=== PATIENT | female | born 1980 | race Caucasian/White ===

== ENCOUNTER 2018-12-18 11:18 | Inpatient (IN) | payer OTHER ==
--- NOTE | 2018-12-18 11:38 | PDOC ---
History of Present Illness - General Chief Complaint: Headache Stated Complaint: HEADCHE,FEVER,NAUSEA Time Seen by Provider: 12/18/18 11:37 History Source: Patient Exam Limitations: No Limitations - History of Present Illness Initial Comments: 38 yo F w a hx of asthma presents to the ER from urgent care because she has had a fever and headache since this past Monday. She endorses nausea as well as multiple episodes of NBNB vomitus. She does not usually get headaches, has not history of migraines and states this headache is very abnormal for her. She has been having fevers, chills, and myalgias since Monday. She states her whole body hurts, she feels warm but is constantly cold. She states that she didn't come to a hospital because ibuprofen was helping her deal with the pain but this morning she began feeling numbness and tingling around her left lip and cheek so she came to be evaluated. She has been taking ibuprofen every day for her headache and fever which she believes has been helping. At urgent care her fever was 102, here in the ER it is 100.5. She denies any sick contacts, neck pain, blurry vision, difficulty ranging her head or neck. LMP: 3 weeks prior. PCP: None PSH: , tibial surgery Social Hx: Drinks recreationally. Denies smoking or illicit drug usage. Allergies: NKA, NKDA - [facility] Phone number: [phone] Past History - Past Medical History Allergies/Adverse Reactions: Allergies Allergy/AdvReac Type Severity Reaction Status Date / Time No Known Allergies Allergy Verified 12/18/18 11:19 Home Medications: Ambulatory Orders NK [No Known Home Medication] 12/18/18 COPD: No - Suicide/Smoking/Psychosocial Hx Smoking History: Never smoked Have you smoked in the past 12 months: No Information on smoking cessation initiated: No Hx Alcohol Use: No Drug/Substance Use Hx: No Review of Systems - Review of Systems Able to Perform ROS?: Yes Comments:: CONSTITUTIONAL: + fever, + chills, + fatigue EYES: No visual changes ENT: No ear pain, no sore throat CARDIOVASCULAR: No chest pain, no palpitations RESPIRATORY: No cough, no SOB GI: No abdominal pain, + nausea, + vomiting, no constipation, no diarrhea GENITOURINARY: No dysuria, no frequency, no hematuria MUSKULOSKELETAL: No backpain, no joint pain, + myalgias SKIN: No rash NEURO: + headache *Physical Exam - Vital Signs Last Vital Signs Temp Pulse Resp BP Pulse Ox 100.5 F H 98 H 20 109/68 100 12/18/18 11:19 12/18/18 11:19 12/18/18 11:19 12/18/18 11:19 12/18/18 11:19 - Physical Exam Comments: CONSTITUTIONAL: Patient looks unwell. Well-nourished but pale; Moderate distress HEAD: Normocephalic; atraumatic EYES: PERRL; EOM intact ENMT: External appears normal; normal oropharynx NECK: Supple; non-tender; no cervical lymphadenopathy CARD: Tachycardic rate, regular rhythm. Normal S1, S2; no murmurs, rubs, or gallops RESP: CTAB. No wheezes, rhonchi, or rales ABD: Soft, non-distended; non-tender; no palpable organomegaly, no palpable hernias EXT: Normal ROM in all four extremities; non-tender to palpation; distal pulses intact SKIN: Skin is Hot. Dry, no rash NEURO: Alert, awake, appropriate. There is left upper lip and cheek numbness. Otherwise, cranial nerves 2-12 intact. No other deficits to light touch in face , upper extremities and lower extremities. No motor deficits in the in face, upper extremities and lower extremities. No pronator drift. Normoreflexic in the upper and lower extremities. Normal speech. Toes are down-going bilaterally. Gait is normal without ataxia. No dysmetria - normal finger to nose and heel to hanson. No dysdiadochokinesis. No abnormal nystagmus. Rhomberg is -. Procedures - Lumbar Puncture Indication: Fever, Headache CT Scan: Yes Betadine Prep: Yes Position: Right lateral decubitus Site: L4-L51 Local Anesthesia: 1% Xylocaine w/ epi Volume(ml): 6 Lumbar Puncture Kit: Adult Opening Pressure(mmHg): 20 Traumatic Tap: No Tubes Obtained: 4 Clear Fluid: Yes Complications: No ED Treatment Course - LABORATORY CBC & Chemistry Diagram: 12/18/18 12:21 12/18/18 12:21 - RADIOLOGY Radiograph Interpretation: CT: Rule out stroke. Rule out infection CT scan of the brain without intravenous contrast. The ventricles and basal cisterns appear unremarkable. No mass lesion , gross acute infarct or intracranial hemorrhage are identified. There is no shift of the midline structures. Minimal mucosal thickening in the sphenoid sinus. Otherwise, the visualized paranasal sinuses and mastoid air cells are well-aerated. The calvarium is intact. Impression: No evidence of a focal intracranial lesion or hemorrhage seen. Correlate clinically to determine further evaluation and follow-up Medical Decision Making - Medical Decision Making 38 yo F w a hx of asthma presents to the ER from urgent care because she has had a fever and headache since this past Monday. She endorses nausea as well as multiple episodes of NBNB vomitus. She does not usually get headaches, has not history of migraines and states this headache is very abnormal for her. She has been having fevers, chills, and myalgias since Monday. She states her whole body hurts, she feels warm but is constantly cold. She states that she didn't come to a hospital because ibuprofen was helping her deal with the pain but this morning she began feeling numbness and tingling around her left lip and cheek so she came to be evaluated. VS: febrile and borderline tachycardic DDx IBNLT: meningitis/encephalitis viral vs bacterial, other infection - PNA, URI, UTI, gastroenteritis, complex migraine, CVA/TIA, trigeminal neuralgia, lyme disease. Plan: Labs, IV hydration, EKG, HCG, zofran, tylenol, CXR, cultures, Head CT, probable LP and treat accordingly then re-assess. Labs show leukopenia Head CT - unremarkable LP fluid clear - I brought the LP to [facility] lab for certainty of delivery. Will await results. - LP not suggestive of encephalitis/meningitis Will treat the patient empirically with acyclovir to cover for HSV as well as Ceftriaxone to cover for lyme. ID and neuro consulted for the patient. Spoke with Dr. Reddy - Vancomycin added for empiric treatment of meningitis until bacterial is ruled out. Patient microblogged and accepted for admission to Dr. Pickens's Service. *DC/Admit/Observation/Transfer Diagnosis at time of Disposition: Headache, Fever - Discharge Dispostion Condition at time of disposition: Stable Decision to Admit order: Yes - Referrals - Patient Instructions - Post Discharge Activity
--- NOTE | 2018-12-18 11:39 | PDOC ---
Attending Attestation - Resident Resident Name: Carlin Norman - ED Attending Attestation I have performed the following: I have examined & evaluated the patient, The case was reviewed & discussed with the resident, I agree w/resident's findings & plan - HPI HPI: 12/18/18 12:42 38 yo F w a hx of asthma presents to the ER from urgent care because she has had a fever and headache x3 days since this past Monday. Associated with +nausea , NBNB emesis, myalgias, perioral numbness/tingling and cheeks. also endorses left gum pain but no dental procedures. she does admit to hikes in the [place], last 1 week ago and goes weekly. no known bites, ticks, or environmental triggers/injuries/exposures. No history of migraines/headaches. She has been taking ibuprofen every day for her headache and fever which she believes has been helping to a degree. At urgent care her fever was 102, here in the ER it is 100.5. She denies any sick contacts, neck pain, blurry vision, difficulty ranging her head or neck. No URI sx, no urinary sx, rash or abdominal pain/bowel and bladder symptoms. no travel 12/18/18 17:38 12/18/18 17:39 12/19/18 14:10 - Physicial Exam PE: 12/18/18 12:42 Agree with the resident's HPI and PE as documented in the electronic medical record. NAD, malaised appearing, EOMI, PERRL, MMM, nl conjunctiva, anicteric; neck supple. lungs clear, +tachycardic, abdomen soft nontender. Back nontender. HOLM x4, no focal neuro deficits. No peripheral edema. normal color for ethnicity, WWP. no rash 12/18/18 13:34 - Medical Decision Making 12/18/18 12:42 See HPI for details. Prior notes reviewed, including admissions, discharges and consultations. Vital signs reviewed, fever noted, normotensive normal mental status DDX. viral syndrome, dehydration, meningitis, encephalitis, bacteremia. 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 no clear source, but with GOLDMAN/fever, myalgias and no prior h/o headache, needs to be evaluated for meningitis/encephalitis with LP laboratory results and imaging reviewed, basic labs and lytes wnl, notable for mild leukopenia, which can go with viral etiology LFTs neg, lactic normal, reassuring. UA with ketones, no s/s infection. EKG normal sinus rhythm at 99 bpm, no interval abnormalities, narrow QRS, ST and T wave segments and morphology normal. Nonspecific T wave abnormalities ED course -interventions: IVF, antipyretics. zofran/reglan/benadryl - goldman improving, VS improving, no longer tachy - CT head negative for pathology - consent obtained for LP, risks and indications discussed, pt verbalized understanding and signed for procedure. procedure performed by resident under my direct supervision. 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 IVF hydration continued, tolerating PO intake. ID cs Dr Reddy, Neuro cs Dr Shi mental retardation nurse. admit observation for headache, fever and r/o meningitis, more likely viral picture. admit to Dr Pickens service 12/18/18 17:39 12/18/18 17:45 12/18/18 18:01 Heart Score/ECG Review #1 ECG reviewed & interpreted by me at: 12:15 General ECG Interpretation: Sinus Rhythm, Normal Rate, Normal Intervals Compared to previous ECG there are: Previous ECG unavail 12/18/18 12:44 EKG normal sinus rhythm at 99 bpm, no interval abnormalities, narrow QRS, ST and T wave segments and morphology normal. Nonspecific T wave abnormalities
[2018-12-18] MEDS ORDERED: SODIUM CHLORIDE 1,769 ML IV ONE (11:53)
[2018-12-18] MEDS ORDERED: ACETAMINOPHEN 1000 MG/100 ML VIAL (NON FORMULARY) IVPB ONE (12:00)
[2018-12-18] MEDS ORDERED: ONDANSETRON 4 MG/2 ML VIAL IVPUSH ONE ×2 (12:03→18:00)
[2018-12-18] MEDS ORDERED: ACETAMINOPHEN INJECTION 100 ML IVPB ONE (12:09)
[2018-12-18] MEDS ORDERED: ONDANSETRON 4 MG/2 ML VIAL ONE ×2 (12:09→18:08)
[2018-12-18 12:30] LABS: BASO % 0.2 % (0-2.0); EOS % 0.1 % (0-4.5); HEMATOCRIT 42.4 % (32.4-45.2); HEMOGLOBIN 14.1 GM/dl (10.7-15.3); LYMPH % 9.6 % (8-40); MCH 30.1 pg (25.7-33.7); MCHC 33.2 g/dl (32.0-36.0); MEAN CELL VOLUME 90.6 fl (80-96); MEAN PLT VOLUME 7.7 fl (7.5-11.1); MONO % 7.7 % (3.8-10.2); NEUT % 82.4 % (42.8-82.8); PLATELET COUNT 187 K/MM3 (134-434); RBC 4.68 M/mm3 (3.60-5.2); RDW 11.6 % (11.6-15.6); WHITE BLOOD COUNT 3.8 K/mm3 (4.0-10.8)
[2018-12-18 12:37] LABS: ACTIVATED PTT 23.1 SECONDS (25.2-36.5)
[2018-12-18 12:38] LABS: ALBUMIN 3.7 g/dl (3.4-5.0); CALCIUM 9.1 mg/dl (8.5-10); POTASSIUM 3.8 mmol/L (3.5-5.1)
[2018-12-18 12:44] LABS: INR 1.14 (0.82-1.09); PROTHROMBIN TIME (PATIENT) 12.7 SEC (10.2-13.0)
[2018-12-18] MEDS ORDERED: METOCLOPRAMIDE HCL INJECTION 10 MG/2 ML VIAL IVPUSH ONE (13:04)
[2018-12-18] MEDS ORDERED: METOCLOPRAMIDE HCL INJECTION 10 MG/2 ML VIAL ONE (13:37)
[2018-12-18] MEDS ORDERED: LIDOCAINE HCL 1%, 10 MG/ML (20ML VIAL) ONE (14:27)
--- NOTE | 2018-12-18 15:25 | EKG ---
Test Reason : Blood Pressure : / mmHG Vent. Rate : 099 BPM Atrial Rate : 099 BPM P-R Int : 132 ms QRS Dur : 082 ms QT Int : 326 ms P-R-T Axes : 066 071 026 degrees QTc Int : 418 ms NORMAL SINUS RHYTHM NORMAL ECG NO PREVIOUS ECGS AVAILABLE Confirmed by MD Garrett, Salo ([id number]) on 12/18/2018 3:25:12 PM Referred By: GRAEME ROJAS Confirmed By:Salo Tucker MD
[2018-12-18] MEDS ORDERED: CEFTRIAXONE 2,000 MG in DEXTROSE 5%-WATER - 50 ML IVPB ONE (16:29)
[2018-12-18] MEDS ORDERED: ACYCLOVIR INJECTION 600 MG in DEXTROSE 5%-WATER - 100 ML IVPB ONE (16:29)
[2018-12-18] MEDS ORDERED: KETOROLAC TROMETHAMINE 30 MG/1 ML VIAL IVPUSH ONE (17:04)
[2018-12-18] MEDS ORDERED: KETOROLAC TROMETHAMINE 15 MG/ML VIAL ONE (17:11)
[2018-12-18] MEDS ORDERED: D5-1/2NS+10 MEQ KCL - 10 MEQ/1,000 ML INFUS.BAG IV SCH (17:15)
--- NOTE | 2018-12-18 17:21 | HP ---
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, H/o mild intermittent asthma to day referred from an urgent care Ctr for evaluation of fever with head ache, patient says since Monday she has been feeling unwell with body pain head ache, with nausea with non blood non bilious vomiting, head ache was bi-frontal no associated neck stiffness, photophobia, self medicated with Motrin that helped her partially , this am she began feeling numbness and tingling around her left lip and cheek like anaesthesia after dental procedures visited urgent care there T max noted 102 and patient was referred to Ed for further evaluation, Patient denies any sick contacts, neck pain, blurry vision , dysuria, diarrhea no recent travelling or exposure to animal last wk patient went for hiking trip, in the ED CBC< BMP are normal T max 100.5 hemodynamically stable, suspecting meningitis as patient has fever head ache and some neurological symptoms, LP was performed that was show clear fluid with opening pressure < 20, 3 WBC protein 22 normal Glucose 55 , received IV Ceftriaxone 2 gm and acyclovir ID and neurology was consulted History Source: Patient - Past Medical History Pulmonary: Yes: Asthma - Past Surgical History Past Surgical History: Yes: - Smoking History Smoking history: Never smoked Have you smoked in the past 12 months: No - Alcohol/Substance Use Hx Alcohol Use: No - Social History Usual Living Arrangement: Yes: With Spouse History of Recent Travel: No Home Medications - Allergies Allergies/Adverse Reactions: Allergies Allergy/AdvReac Type Severity Reaction Status Date / Time No Known Allergies Allergy Verified 12/18/18 11:19 - Home Medications Home Medications: Ambulatory Orders NK [No Known Home Medication] 12/18/18 Family Disease History - Family Disease History Family History: Unremarkable Review of Systems - Review of Systems Constitutional: reports: Chills, Fever, Malaise Eyes: denies: Blind Spots, Blurred Vision, Double Vision, Photophobia, Recent Change in Vision HENT: reports: Ear Pain, Nasal Congestion. denies: Difficult Swallowing, Ear Discharge, Mouth Swelling, Throat Pain Neck: denies: Decreased ROM, Lumps, Pain on Movement, Stiffness Cardiovascular: denies: Chest Pain, Edema, Palpitations, Shortness of Breath Respiratory: denies: Cough, Exercise Intolerance, Hemoptysis Gastrointestinal: reports: Nausea, Vomiting. denies: Abdominal Pain, Bloating, Constipation Genitourinary: denies: Burning Musculoskeletal: denies: Back Pain, Crepitus Neurological: reports: Numbness (Left angle of mouth). denies: Change in LOC, Change in Speech, Confusion, Dizziness, Headache, Incoordination Endocrine: denies: Excessive Sweating, Flushing, Increased Hunger Pain Intensity: 4 Physical Examination Vital Signs: Vital Signs Temperature 100.1 F H 12/18/18 16:41 Pulse Rate 79 12/18/18 16:41 Respiratory Rate 20 12/18/18 16:41 Blood Pressure 109/66 12/18/18 16:41 O2 Sat by Pulse Oximetry (%) 100 12/18/18 16:41 Young F fees improved less nause and vomiting , still c/o mild head ache HEENT: mm moist, no ear discharge mild tenderness over sinuses NECK; supple, no JVD No bruit CHEST: CTA B/L CVS; S1S2 R no m/g/r ABD: No distention, non tender Bs + EXT: no edema feet, no calf tenderness 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 non focal except subjective newness at Left angle of mouth no facial droop Cranial N 2-12 are normal Normal Motor and sensory exam DTR; symmetrical Planter B/L flexors Labs: CBC, BMP 12/18/18 12:21 12/18/18 12:21 Imaging - Results Cat Scan: Report Reviewed (Normal) EKG: Report Reviewed (99 NSR) Problem List - Problems (1) Fever Assessment/Plan: Patient present with head ache and fever with nausea and vomiting, no neck stiffness, skin rash or phoptophobia, TWBc normal prelim CSF exam dhows WBC 3 Protein 22, Glucose 50, Gram stain -ve, normal pressure , less likely meningitis, no change in MS or seizures considering recent hiking trip is covered for Lyme titers are pending will observe closely neurocheck, tylenol for fever and head ache, start clear liquid and advance as tolerates, will F/U Neurology and ID recommendations. Currently on droplet precautions pending ID recommendations. Code(s): R50.9 - FEVER, UNSPECIFIED (2) Nausea & vomiting Assessment/Plan: clear, no diarrhea abd exam unremarkable LFTs are normal. liquid advance as tolerates, D5 1/2 NS with K IV Zofran PRN and PPI Code(s): R11.2 - NAUSEA WITH VOMITING, UNSPECIFIED (3) Starvation ketoacidosis Assessment/Plan: low bicarb , acetone in the urine poor PO intake will f/U BMP after IV hydration and D5 infusion. Code(s): E87.2 - ACIDOSIS
[2018-12-18] MEDS ORDERED: SODIUM CHLORIDE 0.9% 500 ML INFUS.BAG IV ONE (17:41)
[2018-12-18] MEDS ORDERED: VANCOMYCIN 1,000 MG in DEXTROSE 5%-WATER - 250 ML IVPB ONE (17:44)
[2018-12-18 17:55] LABS: BF GLUCOSE (CSF ONLY) 50 mg/dL (40-70)
[2018-12-18 17:56] LABS: EPITHELIAL CELLS FEW /hpf
[2018-12-18] MEDS ORDERED: morphine CARPU-JECT 4 MG/1 ML DISP.SYRIN IVPUSH ONE (18:00)
[2018-12-18] MEDS ORDERED: morphine SULFATE 4 MG/ML VIAL ONE (18:07)
[2018-12-18 18:14] LABS: CSF APPEARANCE CLEAR; CSF COLOR COLORLESS; CSF WBC 3
[2018-12-18 19:03] VITALS: BMI 51.5
[2018-12-18] MEDS ORDERED: VANCOMYCIN 1 GRAM (PRE-DOCKED) 1,000 MG/250 ML BAG IVPB ONE (19:30)
[2018-12-18] MEDS: FAMOTIDINE 20 MG TABLET PO SCH (22:19)
[2018-12-18] MEDS: ONDANSETRON 4 MG/2 ML VIAL IVPUSH PRN (22:21)
[2018-12-18] MEDS: KETOROLAC TROMETHAMINE 15 MG/ML VIAL IVPUSH PRN (22:21)
[2018-12-19] MEDS: ONDANSETRON 4 MG/2 ML VIAL IVPUSH PRN ×3 (03:40→23:47)
--- NOTE | 2018-12-19 07:15 | CON.NEURO ---
Consult - Past Medical History Pulmonary: Yes: Asthma ...LMP: 12/02/18 ...: No - Past Surgical History Past Surgical History: Yes: - Alcohol/Substance Use Hx Alcohol Use: No - Smoking History Smoking history: Never smoked Have you smoked in the past 12 months: No - Social History History of Recent Travel: No Home Medications - Allergies Allergies/Adverse Reactions: Allergies Allergy/AdvReac Type Severity Reaction Status Date / Time No Known Allergies Allergy Verified 12/18/18 11:19 - Home Medications Home Medications: Ambulatory Orders NK [No Known Home Medication] 12/18/18 Physical Exam-Neuro Vital Signs: Vital Signs Temperature 99.6 F 12/19/18 06:58 Pulse Rate 99 H 12/19/18 05:58 Respiratory Rate 18 12/19/18 05:58 Blood Pressure 105/48 L 12/19/18 05:58 O2 Sat by Pulse Oximetry (%) 98 12/19/18 05:58 Labs: CBC, BMP 12/18/18 12:21 12/18/18 12:21 INR, PTT INR 1.14 (0.82-1.09) 12/18/18 12:21 Assessment/Plan cc Fever , headhace and face numbness HPI 38 year old female history of headahce for three days, followed by fever( upto 103 yesterday) and left face numbness. THere is small area of redness on left check was also seen. Her symptoms started with body ache, headache and nause aadn vomiting. Patient also have numbness around left lip . She also have left gum pain, patient denies any dental procedure. There is no other focal neurological syptoms. Her ct head i snormal, and she has spinal tap done. Her csf protein is 22 and wbc is 3. Patient has spiked fever last night. headhace is slightly better. PMH as above and asthma NKDA SH,ROS,FH reviewed in chart NK [No Known Home Medication] 12/18/18 NEUROLOGICAL EXAMINATION Alert oriented x 3, speech is normal, no neck stiffness eomi, pupils reactive and there is subjective slight dysthesia on left angle of mouth motor 5/5 all ext sensation is noraml reflex are normal ct head is unremarkable csf protien is 22 and wbc 3 Assessment/Plan three days severe headache and fever, ct scan is benign and csf is normal. Clinically there is no evidence of meningitis or encephalitis, though clinically may have early viral meningitis . Left face numbness is concering, I would do mri of brain with contrast Plan: ID consult - mri of brain with contrast Thanking you so much Albaro Mcnamara MD
[2018-12-19 08:24] LABS: ALBUMIN 2.7 g/dl (3.4-5.0); BILIRUBIN,TOTAL 1.1 mg/dl (0.2-1); CALCIUM 7.8 mg/dl (8.5-10); POTASSIUM 3.6 mmol/L (3.5-5.1); TOT PROT 5.4 g/dl (6.4-8.2)
[2018-12-19] MEDS: FAMOTIDINE 20 MG TABLET PO SCH ×2 (09:55→21:32)
[2018-12-19] MEDS ORDERED: POTASSIUM CHLORIDE ORAL LIQUID 20 MEQ/15 ML PO ONE (10:00)
[2018-12-19] MEDS ORDERED: CEFTRIAXONE 2 GM/100 ML BAG IVPB ONE (10:00)
[2018-12-19] MEDS ORDERED: CEFTRIAXONE 2 GM-D5W BAG 2 GM/50 ML BAG IVPB ONE (10:00)
[2018-12-19 10:14] LABS: HEMATOCRIT 33.5 % (32.4-45.2); HEMOGLOBIN 11.7 GM/dl (10.7-15.3); MCH 30.9 pg (25.7-33.7); MCHC 34.9 g/dl (32.0-36.0); MEAN CELL VOLUME 88.6 fl (80-96); MEAN PLT VOLUME 8.3 fl (7.5-11.1); PLATELET COUNT 120 K/MM3 (134-434); RBC 3.78 M/mm3 (3.60-5.2); RDW 11.3 % (11.6-15.6); WHITE BLOOD COUNT 3.7 K/mm3 (4.0-10.8)
--- NOTE | 2018-12-19 10:29 | CON.ID ---
Consult - Past Medical History Pulmonary: Yes: Asthma ...LMP: 12/02/18 ...: No - Past Surgical History Past Surgical History: Yes: - Alcohol/Substance Use Hx Alcohol Use: No - Smoking History Smoking history: Never smoked Have you smoked in the past 12 months: No - Social History History of Recent Travel: No Home Medications - Allergies Allergies/Adverse Reactions: Allergies Allergy/AdvReac Type Severity Reaction Status Date / Time No Known Allergies Allergy Verified 12/18/18 11:19 - Home Medications Home Medications: Ambulatory Orders NK [No Known Home Medication] 12/18/18 Physical Exam Vital Signs: Vital Signs Temperature 99.6 F 12/19/18 06:58 Pulse Rate 99 H 12/19/18 05:58 Respiratory Rate 18 12/19/18 05:58 Blood Pressure 105/48 L 12/19/18 05:58 O2 Sat by Pulse Oximetry (%) 98 12/19/18 05:58 Labs: CBC, BMP 12/19/18 07:15 12/19/18 07:13
[2018-12-19] MEDS ORDERED: VANCOMYCIN 1 GM in D5W (PRE-DOCKED) 1,000 MG/250 ML IVPB ONE (10:30)
[2018-12-19] MEDS: CLINDAMYCIN 300 MG PREMIX IVPB 300 MG/50 ML BAG IVPB SCH ×2 (11:31→17:53)
[2018-12-19 11:37] LABS: PLATELET ESTIMATE ADEQUATE
--- NOTE | 2018-12-19 14:20 | PN ---
Progress Note, Physician Chief Complaint: pt reports frontal headache, swelling of eyelids and continued anesthesia to left lower mandible. Temp 99.6 this AM. - Current Medication List Current Medications: Active Medications Famotidine (Pepcid -) 20 mg PO BID RAQUEL Last Admin: 12/19/18 09:55 Dose: 20 mg Potassium Chloride/Dextrose/Sod Cl (D5-1/2ns+10 Meq Kcl -) 10 meq in 1,000 mls @ 100 mls/hr IV ASDIR RAQUEL Last Admin: 12/19/18 01:07 Dose: 100 mls/hr Clindamycin Phosphate (Cleocin 300 Mg Premix Ivpb) 300 mg in 50 mls @ 100 mls/ hr IVPB Q8H-IV RAQUEL; Protocol Last Admin: 12/19/18 11:31 Dose: 100 mls/hr Ceftriaxone Sodium (Ceftriaxone 2 Gm-D5w Bag) 2 gm in 50 mls @ 100 mls/hr IVPB DAILY [facility] Ketorolac Tromethamine (Toradol Injection -) 10 mg IVPUSH Q6H PRN PRN Reason: PAIN LEVEL 6-10 Stop: 12/23/18 21:53 Last Admin: 12/18/18 22:21 Dose: 10 mg Ondansetron HCl (Zofran Injection) 4 mg IVPUSH Q6H PRN PRN Reason: NAUSEA Last Admin: 12/19/18 03:40 Dose: 4 mg - Objective Vital Signs: Vital Signs Temperature 98.2 F 12/19/18 14:00 Pulse Rate 70 12/19/18 14:00 Respiratory Rate 17 12/19/18 14:00 Blood Pressure 109/68 12/19/18 14:00 O2 Sat by Pulse Oximetry (%) 100 12/19/18 14:00 Constitutional: Yes: Well Nourished, Pallor Eyes: Yes: Conjunctiva Clear, EOM Intact, PERRL HENT: Yes: Atraumatic, Normocephalic Neck: Yes: Supple, Trachea Midline Cardiovascular: Yes: Regular Rate and Rhythm Respiratory: Yes: Regular, CTA Bilaterally Gastrointestinal: Yes: Normal Bowel Sounds, Soft ...Rectal Exam: Yes: Deferred Extremities: Yes: WNL Edema: No Peripheral Pulses WNL: Yes Peripheral Pulses: Left Radial: 2+, Right Radial: 2+, Left Doralis Pedis: 2+, Right Dorsalis Pedis: 2+ Integumentary: Yes: WNL Neurological: Yes: Alert, Oriented ...Motor Strength: WNL Psychiatric: Yes: Alert, Oriented Labs: CBC, BMP 12/19/18 07:15 12/19/18 07:13 INR, PTT INR 1.14 (0.82-1.09) 12/18/18 12:21 Negative blood parasite testing 12/19/18 - ....Imaging Cat Scan: Report Reviewed (CT neck and mandible 12/19/2018 IMPRESSION: No discrete abscess is seen. There is no definite osseous pathology. Dental consultation is suggested, nonemergent versus emergent as clinically indicated given the provided clinical history. Reported By: Trent Hawkins MD 12/19/18 1319) MRI: Report Reviewed (MRI Brain 12/19/2018 Impression: Impression. No evidence of edema, acute or subacute ischemia changes, hemorrhage, or demyelinating process. Normal CSF spaces. Following intravenous infusion with gadolinium, no blood brain barrier defect, or abnormal focus of enhancement is seen. No evidence of leptomeningeal enhancement. Reported By: Usman Sanderson MD 12/19 6846) Problem List - Problems (1) FUO (fever of unknown origin) Assessment/Plan: blood cx, viral and urine cultures pending CSF fluid: no growth to date ID following, recs appreciated - d/c vanco, continue ceftriaxone and start clindamycin per ID CT mandible and soft tissues of neck done: no sigificant findings MRI brain completed: unremarkable study f/u CXR ordered for Right base increased pulm markings Code(s): R50.9 - FEVER, UNSPECIFIED (2) Headache Assessment/Plan: Tylenol PRN moderate pain Toradol PRN severe pain neuro check cont neuro following Code(s): R51 - HEADACHE (3) Prophylactic measure Assessment/Plan: OOB to chair Ambulate as tolerated pepcid BID Code(s): Z29.9 - ENCOUNTER FOR PROPHYLACTIC MEASURES, UNSPECIFIED (4) Nausea & vomiting Assessment/Plan: PRN zofran po intake as tolerated Code(s): R11.2 - NAUSEA WITH VOMITING, UNSPECIFIED Impression/Plan Impression/Plan: Code status: full Visit type - Emergency Visit Emergency Visit: Yes ED Registration Date: 12/18/18 Care time: The patient presented to the Emergency Department on the above date and was hospitalized for further evaluation of their emergent condition. - New Patient This patient is new to me today: Yes Date on this admission: 12/19/18 - Critical Care Critical Care patient: No - Discharge Referral Referred to [facility] Med P.C[facility] No
[2018-12-19] MEDS: KETOROLAC TROMETHAMINE 15 MG/ML VIAL IVPUSH PRN (16:48)
[2018-12-19] MEDS: ACETAMINOPHEN 500 MG TABLET (FP) PO PRN (16:50)
[2018-12-20] MEDS: CLINDAMYCIN 300 MG PREMIX IVPB 300 MG/50 ML BAG IVPB SCH ×3 (01:45→18:20)
[2018-12-20] MEDS: ONDANSETRON 4 MG/2 ML VIAL IVPUSH PRN (04:57)
[2018-12-20] MEDS ORDERED: PROCHLORPERAZINE INJECTION 10 MG/2 ML VIAL IVPB PRN (07:38)
[2018-12-20] MEDS: METOCLOPRAMIDE HCL INJECTION 10 MG/2 ML VIAL IVPUSH PRN (07:49)
--- NOTE | 2018-12-20 07:50 | PN ---
Progress Note, Physician Chief Complaint: fever, malaise, facial numbness History of Present Illness: 38 yo F with no PMH referred to ED from an urgent care for evaluation of fever with head ache, patient says since Monday she has been feeling unwell with body pain head ache, with nausea with non blood non bilious vomiting, head ache was bi-frontal no associated neck stiffness, photophobia. Stated she began feeling numbness and tingling around her left lip and cheek like anaesthesia after dental procedures visited urgent care there T max noted 102 and patient was referred to Ed for further evaluation, Patient denies any sick contacts, neck pain, blurry vision, dysuria, diarrhea no recent travelling or exposure to animal last wk patient went for hiking trip, in the ED CBC< BMP are normal T max 100.5 hemodynamically stable, suspecting meningitis as patient has fever head ache and some neurological symptoms, LP was performed that was show clear fluid with opening pressure < 20, 3 WBC protein 22 normal Glucose 55 , received IV Ceftriaxone 2 gm and acyclovir ID and neurology was consulted - Current Medication List Current Medications: Active Medications Acetaminophen (Tylenol -) 1,000 mg PO Q6H PRN PRN Reason: PAIN LEVEL 4 - 6 Last Admin: 12/19/18 16:50 Dose: 1,000 mg Famotidine (Pepcid -) 20 mg PO BID RAQUEL Last Admin: 12/19/18 21:32 Dose: 20 mg Potassium Chloride/Dextrose/Sod Cl (D5-1/2ns+10 Meq Kcl -) 10 meq in 1,000 mls @ 100 mls/hr IV ASDIR RAQUEL Last Admin: 12/19/18 01:07 Dose: 100 mls/hr Clindamycin Phosphate (Cleocin 300 Mg Premix Ivpb) 300 mg in 50 mls @ 100 mls/ hr IVPB Q8H-IV RAQUEL; Protocol Last Admin: 12/20/18 01:45 Dose: 100 mls/hr Ceftriaxone Sodium (Ceftriaxone 2 Gm-D5w Bag) 2 gm in 50 mls @ 100 mls/hr IVPB DAILY [facility] Ketorolac Tromethamine (Toradol Injection -) 10 mg IVPUSH Q6H PRN PRN Reason: PAIN LEVEL 6-10 Stop: 12/23/18 21:53 Last Admin: 12/19/18 16:48 Dose: 10 mg Metoclopramide HCl (Reglan Injection -) 10 mg IVPUSH Q8H PRN PRN Reason: NAUSEA AND/OR VOMITING Ondansetron HCl (Zofran Injection) 4 mg IVPUSH Q6H PRN PRN Reason: NAUSEA Last Admin: 12/20/18 04:57 Dose: 4 mg Prochlorperazine Edisylate (Compazine Injection -) 10 mg IVPB Q4H PRN PRN Reason: NAUSEA AND/OR VOMITING - Objective Vital Signs: Vital Signs Temperature 99.0 F 12/20/18 07:04 Pulse Rate 79 12/20/18 07:04 Respiratory Rate 18 12/20/18 07:04 Blood Pressure 113/66 12/20/18 07:04 O2 Sat by Pulse Oximetry (%) 94 L 12/20/18 07:04 Constitutional: Yes: Well Nourished, No Distress, Anxious Eyes: Yes: WNL, Conjunctiva Clear, EOM Intact HENT: Yes: WNL, Atraumatic, Normocephalic, Other (left distal molar/wisdom tooth partially through gum) Neck: Yes: WNL, Supple, Trachea Midline Cardiovascular: Yes: WNL, Regular Rate and Rhythm Respiratory: Yes: WNL, Regular, CTA Bilaterally Gastrointestinal: Yes: WNL, Normal Bowel Sounds, Soft ...Rectal Exam: Yes: Deferred Genitourinary: Yes: WNL Musculoskeletal: Yes: WNL Extremities: Yes: WNL Edema: No Peripheral Pulses WNL: Yes Integumentary: Yes: WNL Neurological: Yes: WNL, Alert, Oriented ...Motor Strength: WNL Psychiatric: Yes: WNL, Alert, Oriented Labs: INR, PTT INR 1.14 (0.82-1.09) 12/18/18 12:21 - ....Imaging Chest X-ray: Report Reviewed, Image Reviewed (RLL infiltrate vs atelectasis) Cat Scan: Report Reviewed (CT Report Reviewed (CT neck and mandible 12/19/2018 IMPRESSION: No discrete abscess is seen. There is no definite osseous pathology. Dental consultation is suggested, nonemergent versus emergent as clinically indicated given the provided clinical history. Reported By: Trent Hawkins MD 12/19/18 1602) 15)) MRI: Report Reviewed (MRI: Report Reviewed (MRI Brain 12/19/2018 Impression: Impression. No evidence of edema, acute or subacute ischemia changes, hemorrhage, or demyelinating process. Normal CSF spaces. Following intravenous infusion with gadolinium, no blood brain barrier defect, or abnormal focus of enhancement is seen. No evidence of leptomeningeal enhancement.) Problem List - Problems (1) FUO (fever of unknown origin) Assessment/Plan: blood cx, viral and urine cultures pending CSF fluid: no growth to date serologies pending ID following, recs appreciated -continue ceftriaxone and clindamycin CT mandible and soft tissues of neck done: no sigificant findings MRI brain completed: unremarkable study CXR with RLL inflitrate vs atelectasis daily CXR encourage ambulation IS q1H while awake Code(s): R50.9 - FEVER, UNSPECIFIED (2) Headache Assessment/Plan: tylenol PRN neuro checks neurology following and appreciate input Code(s): R51 - HEADACHE (3) Nausea & vomiting Assessment/Plan: zofran/reglan PRN Code(s): R11.2 - NAUSEA WITH VOMITING, UNSPECIFIED (4) Prophylactic measure Assessment/Plan: FEN regular diet as tolerated encourage PO fluids Dispo maintain as inpatient until CX result discharge planning full code Code(s): Z29.9 - ENCOUNTER FOR PROPHYLACTIC MEASURES, UNSPECIFIED Impression/Plan Impression/Plan: - Visit type - Emergency Visit Emergency Visit: Yes ED Registration Date: 12/18/18 Care time: The patient presented to the Emergency Department on the above date and was hospitalized for further evaluation of their emergent condition. - New Patient This patient is new to me today: Yes Date on this admission: 12/20/18 - Critical Care Critical Care patient: No - Discharge Referral Referred to [facility] No
[2018-12-20 08:24] LABS: ALBUMIN 2.8 g/dl (3.4-5.0); BILIRUBIN,TOTAL 0.6 mg/dl (0.2-1); CREATININE 0.7 mg/dl (0.55-1.3); PHOSPHOROUS 1.2 mg/dl (2.5-4.9); POTASSIUM 3.8 mmol/L (3.5-5.1); TOT PROT 5.4 g/dl (6.4-8.2)
[2018-12-20 08:27] LABS: HEMATOCRIT 34.6 % (32.4-45.2); HEMOGLOBIN 11.9 GM/dl (10.7-15.3); MCH 30.7 pg (25.7-33.7); MCHC 34.3 g/dl (32.0-36.0); MEAN CELL VOLUME 89.5 fl (80-96); RBC 3.87 M/mm3 (3.60-5.2); RDW 11.6 % (11.6-15.6)
[2018-12-20 09:25] LABS: PLATELET COUNT 76 K/MM3 (134-434)
[2018-12-20] MEDS: CEFTRIAXONE 2 GM-D5W BAG 2 GM/50 ML BAG IVPB SCH (09:48)
[2018-12-20] MEDS: ACETAMINOPHEN 500 MG TABLET (FP) PO PRN (09:49)
[2018-12-20] MEDS: FAMOTIDINE 20 MG TABLET PO SCH ×2 (09:49→21:59)
[2018-12-20] MEDS ORDERED: VANCOMYCIN 1 GM in D5W (PRE-DOCKED) 1,000 MG/250 ML IVPB SCH (10:00)
[2018-12-20 10:57] LABS: WHITE BLOOD COUNT 5.2 K/mm3 (4.0-10.8)
--- NOTE | 2018-12-20 11:33 | PN ---
Progress Note, Physician History of Present Illness: Pt seen and examine, chart reviewed. She states she has less headache with persistence of Lt lower perioral numbness. Tmax 99F. Denies SOB/cough. No other specific complaints. - Current Medication List Current Medications: Active Medications Acetaminophen (Tylenol -) 1,000 mg PO Q6H PRN PRN Reason: PAIN LEVEL 4 - 6 Last Admin: 12/20/18 09:49 Dose: 1,000 mg Famotidine (Pepcid -) 20 mg PO BID RAQUEL Last Admin: 12/20/18 09:49 Dose: 20 mg Potassium Chloride/Dextrose/Sod Cl (D5-1/2ns+10 Meq Kcl -) 10 meq in 1,000 mls @ 100 mls/hr IV ASDIR RAQUEL Last Admin: 12/19/18 01:07 Dose: 100 mls/hr Clindamycin Phosphate (Cleocin 300 Mg Premix Ivpb) 300 mg in 50 mls @ 100 mls/ hr IVPB Q8H-IV RAQUEL; Protocol Last Admin: 12/20/18 09:49 Dose: 100 mls/hr Ceftriaxone Sodium (Ceftriaxone 2 Gm-D5w Bag) 2 gm in 50 mls @ 100 mls/hr IVPB DAILY RAQUEL Last Admin: 12/20/18 09:48 Dose: 100 mls/hr Ketorolac Tromethamine (Toradol Injection -) 10 mg IVPUSH Q6H PRN PRN Reason: PAIN LEVEL 6-10 Stop: 12/23/18 21:53 Last Admin: 12/19/18 16:48 Dose: 10 mg Metoclopramide HCl (Reglan Injection -) 10 mg IVPUSH Q8H PRN PRN Reason: NAUSEA AND/OR VOMITING Last Admin: 12/20/18 07:49 Dose: 10 mg Ondansetron HCl (Zofran Injection) 4 mg IVPUSH Q6H PRN PRN Reason: NAUSEA Last Admin: 12/20/18 04:57 Dose: 4 mg Prochlorperazine Edisylate (Compazine Injection -) 10 mg IVPB Q4H PRN PRN Reason: NAUSEA AND/OR VOMITING - Objective Vital Signs: Vital Signs Temperature 99.0 F 12/20/18 07:04 Pulse Rate 79 12/20/18 07:04 Respiratory Rate 18 12/20/18 07:04 Blood Pressure 113/66 12/20/18 07:04 O2 Sat by Pulse Oximetry (%) 94 L 12/20/18 07:04 Constitutional: Yes: No Distress, Calm Cardiovascular: Yes: Regular Rate and Rhythm Respiratory: Yes: CTA Bilaterally Gastrointestinal: Yes: Normal Bowel Sounds, Soft Genitourinary: Yes: WNL Musculoskeletal: Yes: WNL Extremities: Yes: WNL Integumentary: Yes: WNL Neurological: Yes: Alert, Oriented Labs: CBC, BMP 12/20/18 07:17 12/20/18 07:17 INR, PTT INR 1.14 (0.82-1.09) 12/18/18 12:21 Microbiology 12/18/18 15:15 Cerebral Spinal Fluid - Lumbar Puncture Gram Stain - Final 12/18/18 15:15 Cerebral Spinal Fluid - Lumbar Puncture CSF Culture - Final NO GROWTH AFTER 48 HOURS INCUBATION 12/18/18 17:29 Urine - Urine Clean Catch Urine Culture - Final Contaminated: Please Repeat 12/18/18 17:29 Blood - Peripheral Venous Blood Culture - Preliminary NO GROWTH OBTAINED AFTER 24 HOURS, INCUBATION TO CONTINUE FOR 4 DAYS. 12/18/18 13:45 Blood - Peripheral Venous Blood Parasites Smear - Final 12/18/18 15:15 Cerebral Spinal Fluid - Lumbar Puncture Viral Culture - Preliminary Problem List - Problems (1) Fever Code(s): R50.9 - FEVER, UNSPECIFIED (2) Headache Code(s): R51 - HEADACHE Assessment/Plan -- Continue Ceftriaxone/Clindamycin for now -- If numbness persists will consider Acyclovir - Serologies pending - MRI/CT results noted - no specific abnormal findings -- platelets trending down, monitor cbc -- Continue monitor vitals -- Pt currently afebrile, improved headache
[2018-12-20 14:11] LABS: IgG Ab 23 kDa Band Absent (.); IgG Ab 28 kDa Band Absent (.)
[2018-12-20] MEDS: ACYCLOVIR 400 MG TABLET PO SCH ×2 (15:10→21:59)
[2018-12-20 15:11] LABS: E.chaff HME IgG Negative (Neg:<1:64)
[2018-12-20 18:14] LABS: BABESIA MICROTI ANTIBODY IGG <1:10 (Neg:<1:10); BABESIA MICROTI ANTIBODY IGM <1:10 (Neg:<1:10)
[2018-12-21] MEDS: CLINDAMYCIN 300 MG PREMIX IVPB 300 MG/50 ML BAG IVPB SCH ×2 (01:49→09:23)
[2018-12-21] MEDS: ONDANSETRON 4 MG/2 ML VIAL IVPUSH PRN (02:48)
[2018-12-21] MEDS: METOCLOPRAMIDE HCL INJECTION 10 MG/2 ML VIAL IVPUSH PRN (02:57)
[2018-12-21] MEDS: ACYCLOVIR 400 MG TABLET PO SCH (05:59)
[2018-12-21 08:06] LABS: ALBUMIN 2.7 g/dl (3.4-5.0); BILIRUBIN,TOTAL 0.5 mg/dl (0.2-1); CALCIUM 8.2 mg/dl (8.5-10); CREATININE 0.8 mg/dl (0.55-1.3); MAGNESIUM 1.6 mg/dL (1.8-2.4); POTASSIUM 4.1 mmol/L (3.5-5.1); TOT PROT 5.6 g/dl (6.4-8.2)
[2018-12-21 08:24] LABS: HEMATOCRIT 33.9 % (32.4-45.2); HEMOGLOBIN 11.6 GM/dl (10.7-15.3); MCH 30.1 pg (25.7-33.7); MCHC 34.2 g/dl (32.0-36.0); MEAN PLT VOLUME 7.7 fl (7.5-11.1); RBC 3.85 M/mm3 (3.60-5.2); RDW 11.6 % (11.6-15.6); WHITE BLOOD COUNT 6.3 K/mm3 (4.0-10.8)
[2018-12-21] MEDS ORDERED: PT OWN MED DRAWER 7, Y5N ONE (09:16)
[2018-12-21] MEDS: CEFTRIAXONE 2 GM-D5W BAG 2 GM/50 ML BAG IVPB SCH (09:23)
--- NOTE | 2018-12-21 09:46 | PN ---
Progress Note (short form) - Note Progress Note: 38 year old female history of headahce for three days, followed by fever( upto 103 yesterday) and left face numbness. THere is small area of redness on left check was also seen. Her symptoms started with body ache, headache and nause aadn vomiting. Patient also have numbness around left lip . She also have left gum pain, patient denies any dental procedure. There is no other focal neurological syptoms. Her ct head i snormal, and she has spinal tap done. Her csf protein is 22 and wbc is 3. Patient had mri of brain with contrast and it is normal. She is feeling better and afebrile NEUROLOGICAL EXAMINATION Alert oriented x 3, speech is normal, no neck stiffness eomi, pupils reactive and there is subjective slight dysthesia on left angle of mouth motor 5/5 all ext sensation is noraml reflex are normal ct head is unremarkable csf protien is 22 and wbc 3 mri of brain is normal Assessment/Plan 38 year old otherwise healthy female, initial presentation was three days severe headache and fever, ct scan is benign and csf is normal. Clinically there is no evidence of meningitis or encephalitis, Patient is improving and mri ofbrain is normal. she continue to have left gum pain/ numbness, which could be a local issue, as she has history of gingivitis Plan: no further recommendation from neuro point of view Thanking you so much Albaro Mcnamara MD
--- NOTE | 2018-12-21 10:19 | PN ---
Progress Note, Physician History of Present Illness: patient stable still with some numbness on the left side of the jaw and some swelling present - Current Medication List Current Medications: Active Medications Acetaminophen (Tylenol -) 1,000 mg PO Q6H PRN PRN Reason: PAIN LEVEL 4 - 6 Last Admin: 12/20/18 09:49 Dose: 1,000 mg Acyclovir (Zovirax -) 800 mg PO TID RAQUEL Last Admin: 12/21/18 05:59 Dose: 800 mg Potassium Chloride/Dextrose/Sod Cl (D5-1/2ns+10 Meq Kcl -) 10 meq in 1,000 mls @ 100 mls/hr IV ASDIR RAQUEL Last Admin: 12/19/18 01:07 Dose: 100 mls/hr Clindamycin Phosphate (Cleocin 300 Mg Premix Ivpb) 300 mg in 50 mls @ 100 mls/ hr IVPB Q8H-IV RAQUEL; Protocol Last Admin: 12/21/18 09:23 Dose: 100 mls/hr Ceftriaxone Sodium (Ceftriaxone 2 Gm-D5w Bag) 2 gm in 50 mls @ 100 mls/hr IVPB DAILY RAQUEL Last Admin: 12/21/18 09:23 Dose: 100 mls/hr Ketorolac Tromethamine (Toradol Injection -) 10 mg IVPUSH Q6H PRN PRN Reason: PAIN LEVEL 6-10 Stop: 12/23/18 21:53 Last Admin: 12/19/18 16:48 Dose: 10 mg Metoclopramide HCl (Reglan Injection -) 10 mg IVPUSH Q8H PRN PRN Reason: NAUSEA AND/OR VOMITING Last Admin: 12/21/18 02:57 Dose: 10 mg Ondansetron HCl (Zofran Injection) 4 mg IVPUSH Q6H PRN PRN Reason: NAUSEA Last Admin: 12/20/18 04:57 Dose: 4 mg Prochlorperazine Edisylate (Compazine Injection -) 10 mg IVPB Q4H PRN PRN Reason: NAUSEA AND/OR VOMITING - Objective Vital Signs: Vital Signs Temperature 98.5 F 12/21/18 06:00 Pulse Rate 66 12/21/18 06:00 Respiratory Rate 18 12/21/18 06:00 Blood Pressure 102/64 12/21/18 06:00 O2 Sat by Pulse Oximetry (%) 98 12/21/18 06:00 Constitutional: Yes: No Distress, Calm HENT: Yes: Other (left sided swelling) Cardiovascular: Yes: Regular Rate and Rhythm Respiratory: Yes: Regular, CTA Bilaterally Gastrointestinal: Yes: Normal Bowel Sounds, Soft Musculoskeletal: Yes: WNL Neurological: Yes: Alert, Oriented Psychiatric: Yes: Alert, Oriented Labs: CBC, BMP 12/21/18 07:13 12/21/18 07:13 INR, PTT INR 1.14 (0.82-1.09) 12/18/18 12:21 Assessment/Plan Problem List - Problems (1) Fever Code(s): R50.9 - FEVER, UNSPECIFIED (2) Headache Code(s): R51 - HEADACHE Assessment/Plan clinda 300 mg every 8 hours for couple of days follow with dentist
--- NOTE | 2018-12-21 10:20 | PN ---
Progress Note, Physician Chief Complaint: Feels improved mild Lwft facial numbness at angle of moth and swelling. 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, H/o mild intermittent asthma to day referred from an urgent care Ctr for evaluation of fever with head ache, - Current Medication List Current Medications: Active Medications Acetaminophen (Tylenol -) 1,000 mg PO Q6H PRN PRN Reason: PAIN LEVEL 4 - 6 Last Admin: 12/20/18 09:49 Dose: 1,000 mg Potassium Chloride/Dextrose/Sod Cl (D5-1/2ns+10 Meq Kcl -) 10 meq in 1,000 mls @ 100 mls/hr IV ASDIR RAQUEL Last Admin: 12/19/18 01:07 Dose: 100 mls/hr Clindamycin Phosphate (Cleocin 300 Mg Premix Ivpb) 300 mg in 50 mls @ 100 mls/ hr IVPB Q8H-IV RAQUEL; Protocol Last Admin: 12/21/18 09:23 Dose: 100 mls/hr Ketorolac Tromethamine (Toradol Injection -) 10 mg IVPUSH Q6H PRN PRN Reason: PAIN LEVEL 6-10 Stop: 12/23/18 21:53 Last Admin: 12/19/18 16:48 Dose: 10 mg Metoclopramide HCl (Reglan Injection -) 10 mg IVPUSH Q8H PRN PRN Reason: NAUSEA AND/OR VOMITING Last Admin: 12/21/18 02:57 Dose: 10 mg Ondansetron HCl (Zofran Injection) 4 mg IVPUSH Q6H PRN PRN Reason: NAUSEA Last Admin: 12/20/18 04:57 Dose: 4 mg Prochlorperazine Edisylate (Compazine Injection -) 10 mg IVPB Q4H PRN PRN Reason: NAUSEA AND/OR VOMITING - Objective Vital Signs: Vital Signs Temperature 98.5 F 12/21/18 06:00 Pulse Rate 66 12/21/18 06:00 Respiratory Rate 18 12/21/18 06:00 Blood Pressure 102/64 12/21/18 06:00 O2 Sat by Pulse Oximetry (%) 98 12/21/18 06:00 Young F fees improved less nausea and vomiting , still c/o mild head ache HEENT: mm moist, no ear discharge mild tenderness over sinuses NECK; supple, no JVD No bruit CHEST: CTA B/L CVS; S1S2 R no m/g/r ABD: No distention, non tender Bs + EXT: no edema feet, no calf tenderness 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 non focal except subjective newness at Left angle of mouth no facial droop Cranial N 2-12 are normal Normal Motor and sensory exam DTR; symmetrical Planter B/L flexors Labs: CBC, BMP 12/21/18 07:13 12/21/18 07:13 INR, PTT INR 1.14 (0.82-1.09) 12/18/18 12:21 Problem List - Problems (1) Fever Assessment/Plan: Patient present with head ache and fever with nausea and vomiting, no neck stiffness, skin rash or phoptophobia, TWBc normal prelim CSF exam dhows WBC 3 Protein 22, Glucose 50, Gram stain -ve, normal pressure , less likely meningitis, no change in MS or seizures considering recent hiking trip is covered for Lyme titers are pending will observe closely neurocheck, tylenol for fever and head ache, start clear liquid and advance as tolerates, will F/U Neurology and ID recommendations. Currently on droplet precautions pending ID recommendations. Code(s): R50.9 - FEVER, UNSPECIFIED (2) Nausea & vomiting Assessment/Plan: clear, no diarrhea abd exam unremarkable LFTs are normal. liquid advance as tolerates, D5 1/2 NS with K IV Zofran PRN and PPI Code(s): R11.2 - NAUSEA WITH VOMITING, UNSPECIFIED (3) Starvation ketoacidosis Assessment/Plan: low bicarb , acetone in the urine poor PO intake will f/U BMP after IV hydration and D5 infusion. Code(s): E87.2 - ACIDOSIS (4) Thrombocytopenia Assessment/Plan: Patient developed thrombocytopenia, stable H/H no neurological symptoms , discussed with Hematology consult will agreed to evalute patient in afternoon, recommended LDH and peripheral smear to screen for microangiopathic etiology ( unlikely as no neurological symptoms stable H/H normal renal functions if LDH is normal and no schitocytes will Dc Home with close F/U to monitor CBC as paratient doesnnt want to stay in the hospital for platelet monitoring, but will consider to visit ED/hematology lab in am for CBC. ) Code(s): D69.6 - THROMBOCYTOPENIA, UNSPECIFIED
--- NOTE | 2018-12-21 10:40 | DS ---
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 except subjective newness at Left angle of mouth no facial droop Cranial N 2-12 are normal Normal Motor and sensory exam DTR: symmetrical Planter B/L flexors Labs: 12/21/18 07:13 12/21/18 07:13 CBC,CMP WBC 6.3 K/mm3 (4.0-10.8) 12/21/18 07:13 RBC 3.85 M/mm3 (3.60-5.2) 12/21/18 07:13 Hgb 11.6 GM/dl (10.7-15.3) 12/21/18 07:13 Hct 33.9 % (32.4-45.2) 12/21/18 07:13 MCV 88.0 fl (80-96) 12/21/18 07:13 MCH 30.1 pg (25.7-33.7) 12/21/18 07:13 MCHC 34.2 g/dl (32.0-36.0) 12/21/18 07:13 RDW 11.6 % (11.6-15.6) 12/21/18 07:13 Plt Count 62 K/MM3 (134-434) L 12/21/18 07:13 MPV 7.7 fl (7.5-11.1) 12/21/18 07:13 Absolute Neuts (auto) 3.1 K/mm3 12/21/18 07:13 Neutrophils % No Result Required. 12/21/18 07:13 Neutrophils % (Manual) 68.0 % (42.8-82.8) 12/19/18 07:15 Band Neutrophils % 2.0 % (0-10) 12/19/18 07:15 Lymphocytes % No Result Required. 12/21/18 07:13 Lymphocytes % (Manual) 20.0 % (8-40) 12/19/18 07:15 Monocytes % 7.7 % (3.8-10.2) 12/18/18 12:21 Monocytes % (Manual) 8 % (3.8-10.2) 12/19/18 07:15 Eosinophils % 0.1 % (0-4.5) 12/18/18 12:21 Eosinophils % (Manual) 2.0 % (0-4.5) 12/19/18 07:15 Basophils % 0.2 % (0-2.0) 12/18/18 12:21 Platelet Estimate Adequate 12/19/18 07:15 Sodium 138 mmol/L (136-145) 12/21/18 07:13 Potassium 4.1 mmol/L (3.5-5.1) 12/21/18 07:13 Chloride 108 mmol/L (98-107) H 12/21/18 07:13 Carbon Dioxide 24 mmol/L (21-32) 12/21/18 07:13 Anion Gap 6 MMOL/L (8-16) L 12/21/18 07:13 BUN 3.0 mg/dl (7-18) L 12/21/18 07:13 Creatinine 0.8 mg/dl (0.55-1.3) 12/21/18 07:13 Est GFR (CKD-EPI)AfAm 107.64 12/21/18 07:13 Est GFR (CKD-EPI)NonAf 92.87 12/21/18 07:13 Random Glucose 112 mg/dl (74-106) H 12/21/18 07:13 Hemoglobin A1c % 5.3 % (4.2-6.3) 12/20/18 07:17 Lactic Acid 1.0 mmol/L (0.4-2.0) 12/18/18 12:11 Calcium 8.2 mg/dl (8.5-10) L 12/21/18 07:13 Phosphorus 1.2 mg/dl (2.5-4.9) L 12/20/18 07:17 Magnesium 1.6 mg/dL (1.8-2.4) L 12/21/18 07:13 Total Bilirubin 0.5 mg/dl (0.2-1) 12/21/18 07:13 AST 67 U/L (15-37) H 12/21/18 07:13 ALT 92 U/L (13-61) H 12/21/18 07:13 Alkaline Phosphatase 77 U/L (45-117) 12/21/18 07:13 LD Total 194 U/L (84-246) 12/21/18 06:50 Total Protein 5.6 g/dl (6.4-8.2) L 12/21/18 07:13 Albumin 2.7 g/dl (3.4-5.0) L 12/21/18 07:13 Triglycerides 93 mg/dl (0-150) 12/20/18 07:17 Cholesterol 106 mg/dl (50-200) 12/20/18 07:17 Total LDL Cholesterol 49 mg/dl (5-100) 12/20/18 07:17 HDL Cholesterol 38 mg/dl (40-60) L 12/20/18 07:17 TSH 1.65 uIU/ml (0.358-3.74) 12/20/18 07:17 Free T4 1.08 ng/dl (0.76-1.46) 12/20/18 07:17 Serum , Qual Negative 12/18/18 12:49 Discharge Summary Reason For Visit: HEADCHE,FEVER Current Active Problems FUO (fever of unknown origin) (Acute) Fever (Acute) Headache (Acute) Nausea & vomiting (Acute) Prophylactic measure (Acute) Starvation ketoacidosis (Acute) Thrombocytopenia (Acute) Procedures: Principal: LP, MRI Brain, CT haed Hospital Course: 38 yo F healthy H/o mild intermittent asthma to day referred from an urgent care Ctr for evaluation of fever with head ache, patient says since Monday she has been feeling unwell with body pain head ache, with nausea with non blood non bilious vomiting, head ache was bi-frontal no associated neck stiffness, photophobia, self medicated with Motrin that helped her partially , this am she began feeling numbness and tingling around her left lip and cheek like anaesthesia after dental procedures visited urgent care there T max noted 102 and patient was referred to Ed for further evaluation, Patient denies any sick contacts, neck pain, blurry vision, dysuria, diarrhea no recent travelling or exposure to animal last wk patient went for hiking trip, in the ED CBC< BMP are normal T max 100.5 hemodynamically stable, suspecting meningitis as patient has fever head ache and some neurological symptoms, LP was performed that was show clear fluid with opening pressure < 20, 3 WBC protein 22 normal Glucose 55 , received IV Ceftriaxone 2 gm and acyclovir ID and neurology was consulted , during the course of hospitalization, evaluated by ID and Neurologist, intially put on Ceftriaxone 2 gm but that she received for 3 days CSF exam remained normal , no growth of bacteria, gram stain negaticbve, also had MRI that showed no abnormality, patient was put on Clindamycine for Left sided gingivitis , patient developed thrombocytopenia during course of hospitalization , intial platelete count was 187 trended 120 K, 76 K and 62 K today, discussed with hematology consult, unlikely microangiopathic process H/H stable, normal renal functions and normal LDL level discussed with hematology lab blood smear shows no Schitocytes, patient symptoms improved afebrile, no head ache, still some left checl numbness and mild swelling, re evaluated by ID and Neurology cleared to DC home, patient wants to go home , but considering thrombocytopenia needs monitoring of the platelet count, arrangement are made to blood w/u tomorrow as out patient our [facility] Hospitalist FORM TAMPER OPERATOR Ms Rojas will F/U the result for appropriate course of action as per result, plan discussed with the Nursing paper coating supervisor. Patient wasnt to F/U with hematology as out patient we provided patient Hematology office referral. Condition: Guarded - Instructions Diet, Activity, Other Instructions: You were admitted with fever and head ache, intial suspicion was meningitis, your CSF exam so far is -ve for any meningitis so we are stopping your IV abx , your MRI Brain and CT neck are normal,you have low platelet count for that you nesha close monitoring, you should come tomorrow 12/22/2018 9.00 am for rpt blood test and discuss result with our application operations engineer Hospitalis ANP Ms Rojas, she will advise you future plan of care as per blood test result, you need close f/ u with PCP/Hematology to monitor your platelet count Cont oral Abx for Dental infection and F/U with your Dentist. Visit ED if you have excessive bleed, change in mental status, fever or head ache. Referrals: Mal Groves MD [Staff Physician] - 1 Week Disposition: HOME - Home Medications Comprehensive Discharge Medication List: Ambulatory Orders Acetaminophen [Tylenol .Extra-Strength -] 650 mg PO Q6H PRN #20 tablet MDD 3 Clindamycin [Cleocin -] 300 mg PO Q6HPO 5 Days #28 capsule 12/21/18
[2018-12-21 10:43] VITALS: BP 110/58; PULSE 62; TEMP 98.6
[2018-12-21 11:26] LABS: PLATELET COUNT 62 K/MM3 (134-434)
[2018-12-21 11:31] LABS: ANISOCYTOSIS 1+; OVALOCYTE 1+
[2018-12-21 11:33] LABS: TEAR DROP CELLS 1+
[2018-12-22 14:23] LABS: HEMATOCRIT 35.8 % (32.4-45.2); HEMOGLOBIN 12.1 GM/dl (10.7-15.3); MCH 29.8 pg (25.7-33.7); MCHC 33.9 g/dl (32.0-36.0); MEAN CELL VOLUME 88.1 fl (80-96); MEAN PLT VOLUME 7.6 fl (7.5-11.1); PLATELET COUNT 131 K/MM3 (134-434); RBC 4.06 M/mm3 (3.60-5.2); RDW 11.6 % (11.6-15.6); WHITE BLOOD COUNT 5.7 K/mm3 (4.0-10.8)
--- NOTE | 2018-12-23 11:16 | HOSP ---
Subjective - Review of Symptoms Events since last encounter: Patient had blood drawn on 12/22 as outpatient. Platelets trending up 62k-->131k. LDH wnl. Patient was called and advised of results. She indicated she will be following up with Dr. Mal Groves, air crew member. Physical Examination Vital Signs: Vital Signs Temperature 98.6 F 12/21/18 10:00 Pulse Rate 62 12/21/18 10:00 Respiratory Rate 18 12/21/18 10:00 Blood Pressure 110/58 L 12/21/18 10:00 O2 Sat by Pulse Oximetry (%) 98 12/21/18 06:00 Labs: CBC, BMP 12/22/18 13:30 12/21/18 07:13
== END 2018-12-21 13:35 | disposition home or self-care (01) | DRG 158 ==
LOC: FER 11:18 → FM/S 18:32
PROVIDERS: ADMIT Internal Medicine; ATTEND Internal Medicine
PROC: 009U3ZX Drainage of Spinal Canal, Percutaneous Approach, Diagnostic (ICD-10-PCS; principal; 2018-12-18)
DX: K05.10 Chronic gingivitis, plaque induced (principal); E87.2 Acidosis; K00.6 Disturbances in tooth eruption; D69.6 Thrombocytopenia, unspecified; J45.20 Mild intermittent asthma, uncomplicated; R51 Headache
CPT/HCPCS: 36415; 70450-TC; 70490-TC; 70553-TC; 71045-TC-FY; 71046-TC-FY; 80048; 80053; 80061; 81003; 81015; 81025; 82930; 82945; 83036; 83605; 83615; 83735; 84100; 84157; 84439; 84443; 84703; 85025; 85027; 85610; 85730; 86617; 86618; 86666; 86694; 86735; 86753; 86765; 86787; 86788; 86789; 87040; 87070; 87086; 87205; 87207; 87252; 87476; 87529; 93005; 99283-25; A9579; C1887; J0131; J7030